=== PATIENT | female | born 1980 | race Caucasian/White ===

== ENCOUNTER → 2016-05-21 | Outpatient (REF) | payer BC | LOC: M LAB REF 12:24 | PROVIDERS: ATTEND Physician Assistant | DX: R30.0 Dysuria (principal) ==

== ENCOUNTER → 2023-06-08 | Outpatient (REF) | payer BC ==
[~2023-06-08] MED LIST: MYCO500T PO
[2023-06-08 14:51] LABS: BASO % 0.5 % (0.0-1.0); EOS # 0.2 10^3/uL (0.0-0.5); EOS % 2.4 % (0.0-3.0); HEMATOCRIT 45.6 % (36.0-47.0); HEMOGLOBIN 15.1 g/dl (12.0-15.5); LYMPH # 1.3 10^3/uL (1.5-5.0); LYMPH % 21.5 % (24.0-44.0); MEAN CORPUSCULAR HEMOGLOBIN 31.2 pg (27.0-33.0); MEAN CORPUSCULAR HGB CONC 33.1 g/dl (32.0-36.5); MEAN CORPUSCULAR VOLUME 94.2 fl (80.0-96.0); MONO # 0.5 10^3/uL (0.0-0.8); MONO % 8.5 % (2.0-8.0); NEUTROPHILS # 4.1 10^3/uL (1.5-8.5); NEUTROPHILS % 66.9 % (36.0-66.0); PLATELET COUNT, AUTOMATED 228 10^3/uL (150-450); RED BLOOD COUNT 4.84 10^6/uL (4.00-5.40); WHITE BLOOD COUNT 6.1 10^3/uL (4.0-10.0)
[2023-06-08 15:21] LABS: BLOOD UREA NITROGEN 15 MG/DL (9-23); CARBON DIOXIDE LEVEL 26 MMOL/L (20-31); CHLORIDE LEVEL 105 MMOL/L (98-107); CHOLESTEROL LEVEL 208 MG/DL (<200); CREATININE FOR GFR 0.71 MG/DL (0.55-1.30); GLOMERULAR FILTRATION RATE > 60.0 (>58); GLUCOSE, FASTING 81 MG/DL (60-100); LDL CHOLESTEROL 121.6 MG/DL (<100); POTASSIUM SERUM 4.3 MMOL/L (3.5-5.1); SODIUM LEVEL 138 MMOL/L (136-145); TRIGLYCERIDES LEVEL 232 MG/DL (<150)
[2023-06-08 15:23] LABS: TOTAL 25(OH) VITAMIN D 11.9 NG/ML (20.0-100.0)
== END ==
LOC: M SFHCADAM 08:38
PROVIDERS: ATTEND Physician Assistant
DX: R05.3 Chronic cough (principal); R53.83 Other fatigue; Z13.220 Encounter for screening for lipoid disorders; Z13.1 Encounter for screening for diabetes mellitus; E55.9 Vitamin D deficiency, unspecified; M33.90 Dermatopolymyositis, unspecified, organ involvement unspecified; Z23 Encounter for immunization

== ENCOUNTER → 2023-06-14 | Outpatient (CLI) | payer BC | LOC: M WHC 10:44 | PROVIDERS: ATTEND Physician Assistant | DX: Z12.31 Encounter for screening mammogram for malignant neoplasm of breast (principal); Z53.9 Procedure and treatment not carried out, unspecified reason ==

== ENCOUNTER → 2023-06-21 | Outpatient (REF) | payer BC | LOC: M SFHCWAGY 13:14 | PROVIDERS: ATTEND Physician Assistant | DX: Z12.4 Encounter for screening for malignant neoplasm of cervix (principal) ==

== ENCOUNTER 2023-08-01 07:45 | Outpatient (RCR) | payer BC | END 2023-08-04 | LOC: M PT 07:45 | PROVIDERS: ATTEND Physician Assistant | DX: N94.10 Unspecified dyspareunia (principal) ==

== ENCOUNTER 2023-08-15 09:23 | Outpatient (RCR) | payer BC | END 2023-09-03 | LOC: M PT 09:23 | PROVIDERS: ATTEND Physician Assistant | DX: N94.10 Unspecified dyspareunia (principal) ==

== ENCOUNTER 2024-02-05 11:55 | Day surgery (SDC) | payer BC ==
[~2024-02-05] VITALS: Ht 160 cm; Wt 81.3 kg
[~2024-02-05 11:55] MED LIST changes: +FOLI1TAB11 PO; +METH2.5T48 PO
[2024-02-05] MEDS ORDERED: LIDOCAINE 2% 100MG/5ML SDV (FOR ANES.) As Ordered ONE (13:03)
[2024-02-05] MEDS ORDERED: propofoL 200 MG/20 ML VIAL As Ordered ONE (13:04)
[2024-02-05] MEDS ORDERED: GLUCAGON INJ 1MG VIAL As Ordered ONE (13:19)
[2024-02-05 13:31] VITALS: TEMP 97.8
[2024-02-05 14:00] VITALS: BP 133/81; O2SAT 98
== END 2024-02-05 14:00 | disposition home or self-care (01) ==
LOC: M OPP 11:55
PROVIDERS: ATTEND Internal Medicine Gastroenterology
DX: Z12.11 Encounter for screening for malignant neoplasm of colon (principal); Z12.12 Encounter for screening for malignant neoplasm of rectum; K64.8 Other hemorrhoids; M33.10 Other dermatomyositis, organ involvement unspecified; Z79.631 Long term (current) use of antimetabolite agent; Z79.899 Other long term (current) drug therapy
CPT/HCPCS: 45378; J1610

== ENCOUNTER → 2024-04-22 | Outpatient (CLI) | payer BC ==
[2024-04-22 16:48] LABS: BASO % 0.4 % (0.0-1.0); EOS # 0.1 10^3/uL (0.0-0.5); EOS % 1.7 % (0.0-3.0); HEMATOCRIT 43.1 % (36.0-47.0); HEMOGLOBIN 13.8 g/dl (12.0-15.5); LYMPH # 1.4 10^3/uL (1.5-5.0); LYMPH % 19.6 % (24.0-44.0); MEAN CORPUSCULAR HEMOGLOBIN 30.5 pg (27.0-33.0); MEAN CORPUSCULAR VOLUME 95.1 fl (80.0-96.0); MONO # 0.6 10^3/uL (0.0-0.8); MONO % 8.4 % (2.0-8.0); NEUTROPHILS # 4.9 10^3/uL (1.5-8.5); NEUTROPHILS % 69.6 % (36.0-66.0); PLATELET COUNT, AUTOMATED 216 10^3/uL (150-450); RED BLOOD COUNT 4.53 10^6/uL (4.00-5.40)
[2024-04-22 16:57] LABS: ERYTHROCYTE SEDIMENTATION RATE 25 mm/hr (0-20)
[2024-04-22 17:11] LABS: CPK CREATINE PHOSPHOKINASE 291 U/L (34-145)
[2024-04-22 17:12] LABS: ALT/SGPT 23 U/L (7.0-40); AST/SGOT 25 U/L (<34); BLOOD UREA NITROGEN 14 MG/DL (9-23); C REACTIVE PROTEIN QUANTITATIV < 0.50 MG/DL (<1.0); CREATININE FOR GFR 0.58 MG/DL (0.55-1.30); GLOMERULAR FILTRATION RATE > 60.0 (>58)
== END ==
LOC: M WUC 10:36
PROVIDERS: ATTEND Nurse Practitioner
DX: M33.90 Dermatopolymyositis, unspecified, organ involvement unspecified (principal); Z79.899 Other long term (current) drug therapy

== ENCOUNTER → 2024-06-19 | Outpatient (REF) | payer BC ==
[2024-06-19 13:19] LABS: TOTAL 25(OH) VITAMIN D 20.2 NG/ML (20.0-100.0)
[2024-06-19 13:20] LABS: ALBUMIN 3.7 G/DL (3.2-5.2); ALKALINE PHOSPHATASE 69 U/L (35-104); ALT/SGPT 25 U/L (7.0-40); AST/SGOT 25 U/L (<34); BILIRUBIN,TOTAL 0.5 MG/DL (0.3-1.2); BLOOD UREA NITROGEN 16 MG/DL (9-23); CALCIUM LEVEL 9.2 MG/DL (8.5-10.1); CARBON DIOXIDE LEVEL 29 MMOL/L (20-31); CHLORIDE LEVEL 104 MMOL/L (98-107); CHOLESTEROL LEVEL 231 MG/DL (<200); CHOLESTEROL RISK RATIO 5.53 (<5); CREATININE FOR GFR 0.73 MG/DL (0.55-1.30); GLOMERULAR FILTRATION RATE > 90.0 (>58); GLUCOSE, FASTING 85 MG/DL (60-100); HDL CHOLESTEROL 41.7 MG/DL (>40); LDL CHOLESTEROL 148.3 MG/DL (<100); NON-HDL-C 189.3 MG/DL; POTASSIUM SERUM 4.6 MMOL/L (3.5-5.1); SODIUM LEVEL 142 MMOL/L (136-145); TOTAL PROTEIN 7.3 G/DL (5.7-8.2); TRIGLYCERIDES LEVEL 205 MG/DL (<150)
== END ==
LOC: M SFHCADAM 09:52
PROVIDERS: ATTEND Physician Assistant
DX: E55.9 Vitamin D deficiency, unspecified (principal); E78.00 Pure hypercholesterolemia, unspecified

== ENCOUNTER → 2024-07-11 | Outpatient (CLI) | payer BC | LOC: M WHC 07:11 | PROVIDERS: ATTEND Physician Assistant | DX: Z12.31 Encounter for screening mammogram for malignant neoplasm of breast (principal) ==

== ENCOUNTER → 2024-07-25 | Outpatient (CLI) | payer BC | LOC: M WHC 07:47 | PROVIDERS: ATTEND Physician Assistant | DX: R92.2 Inconclusive mammogram (principal); R92.321 Mammographic fibroglandular density, right breast | CPT/HCPCS: 76642; 77065; G0279 ==

== ENCOUNTER → 2024-11-08 | Outpatient (REF) | payer BC ==
[2024-11-08 17:09] LABS: INR 0.97
[2024-11-08 17:41] LABS: BASO # 0.0 10^3/uL (0.0-0.2); BASO % 0.3 % (0.0-1.0); EOS # 0.1 10^3/uL (0.0-0.5); EOS % 1.2 % (0.0-3.0); LYMPH # 1.8 10^3/uL (1.5-5.0); LYMPH % 17.7 % (24.0-44.0); MONO # 0.7 10^3/uL (0.0-0.8); MONO % 6.8 % (2.0-8.0); NEUTROPHILS # 7.6 10^3/uL (1.5-8.5); NEUTROPHILS % 73.7 % (36.0-66.0); PLATELET COUNT, AUTOMATED 253 10^3/uL (150-450)
[2024-11-08 18:06] LABS: ALT/SGPT 34 U/L (7.0-40); AST/SGOT 39 U/L (<34); CALCIUM LEVEL 9.4 MG/DL (8.5-10.1); CARBON DIOXIDE LEVEL 28 MMOL/L (20-31); CHLORIDE LEVEL 102 MMOL/L (98-107); CREATININE FOR GFR 0.73 MG/DL (0.55-1.30); GLOMERULAR FILTRATION RATE > 90.0 (>58); IRON (FE) 51 UG/DL (50-170); PERCENT SATURATION 15.3 % (13.2-45.0); POTASSIUM SERUM 3.7 MMOL/L (3.5-5.1); SODIUM LEVEL 142 MMOL/L (136-145)
[2024-11-08 18:07] LABS: LUTEINIZING HORMONE 7.2 mIU/ML; PROLACTIN 13.76 NG/ML
[2024-11-08 18:08] LABS: FREE T4 1.22 NG/DL (0.89-1.76)
== END ==
LOC: M SFHCADAM 15:14
PROVIDERS: ATTEND Physician Assistant
DX: N92.6 Irregular menstruation, unspecified (principal)
CPT/HCPCS: 80053; 82728; 83001; 83002; 83550; 84146; 84439; 84443; 85025; 85610; 85730; G0123

== ENCOUNTER → 2024-11-13 | Outpatient (REF) | payer BC | LOC: M SFHCDERM 13:31 | PROVIDERS: ATTEND Nurse Practitioner Family | DX: B07.9 Viral wart, unspecified (principal); L57.8 Other skin changes due to chronic exposure to nonionizing radiation; L85.8 Other specified epidermal thickening ==

== ENCOUNTER → 2024-11-14 | Outpatient (CLI) | payer BC | LOC: M RAD 10:32 | PROVIDERS: ATTEND Physician Assistant | DX: N92.6 Irregular menstruation, unspecified (principal) ==

== ENCOUNTER → 2025-01-06 | Outpatient (CLI) | payer BC | LOC: M WHC 14:12 | PROVIDERS: ATTEND Physician Assistant | DX: Z53.9 Procedure and treatment not carried out, unspecified reason (principal) ==

== ENCOUNTER → 2025-01-08 | Outpatient (CLI) | payer BC | LOC: M WUC 11:26 | PROVIDERS: ATTEND Nurse Practitioner | DX: M33.90 Dermatopolymyositis, unspecified, organ involvement unspecified (principal) ==

== ENCOUNTER 2025-01-27 07:20 | Day surgery (SDC) | payer BC ==
[~2025-01-27] VITALS: Ht 160 cm; Wt 82.7 kg
[2025-01-27] MEDS ORDERED: KETOROLAC 30 MG/ML 1 ML VIAL IV ONE (08:00)
[2025-01-27 08:02] LABS: BASO # 0.0 10^3/uL (0.0-0.2); BASO % 0.2 % (0.0-1.0); EOS # 0.0 10^3/uL (0.0-0.5); EOS % 0.2 % (0.0-3.0); LYMPH # 1.3 10^3/uL (1.5-5.0); LYMPH % 10.0 % (24.0-44.0); MONO # 1.1 10^3/uL (0.0-0.8); MONO % 8.5 % (2.0-8.0); NEUTROPHILS # 10.1 10^3/uL (1.5-8.5); NEUTROPHILS % 80.9 % (36.0-66.0); PLATELET COUNT, AUTOMATED 206 10^3/uL (150-450)
[2025-01-27] MEDS: NS (Normal Saline) 0.9% 1,000 ML IV ONE (08:09)
[2025-01-27] MEDS: ACETAMINOPHEN *IV* 1,000 MG in IV 1 EA IV ONE (08:10)
[2025-01-27 08:26] LABS: KETONE, URINE AUTO RFX NEGATIVE (NEGATIVE); LEUKOCYTE ESTERASE UR AUTO RFX NEGATIVE (NEGATIVE); MUCUS, URINE RFX SMALL (NEGATIVE); NITRITE, URINE AUTO RFX NEGATIVE (NEGATIVE); RBC, URINE AUTO RFX 0 /HPF (0-3); SQUAM EPITHELIAL CELL UR AURFX 4 /HPF (0-6); WBC, URINE AUTO RFX 0 /HPF (0-3)
[2025-01-27 08:30] LABS: ALT/SGPT 30 U/L (7.0-40); AST/SGOT 26 U/L (<34); CALCIUM LEVEL 8.5 MG/DL (8.5-10.1); CARBON DIOXIDE LEVEL 24 MMOL/L (20-31); CHLORIDE LEVEL 106 MMOL/L (98-107); CREATININE FOR GFR 0.66 MG/DL (0.55-1.30); GLOMERULAR FILTRATION RATE > 90.0 (>58); POTASSIUM SERUM 3.9 MMOL/L (3.5-5.1); SODIUM LEVEL 140 MMOL/L (136-145)
[2025-01-27 08:31] LABS: HCG, SERUM QUALITATIVE NEGATIVE (NEGATIVE)
[2025-01-27] MEDS ORDERED: ISOVUE-370 76% 100 ML VIAL As Ordered ONE (08:33)
[2025-01-27] MEDS: PIPERACILLIN/TAZOBACTAM SOD 3.375 GM in DEXTROSE 5% (D5W) ADV/MINI-BAG 50 ML IV ONE (10:20)
[2025-01-27] MEDS ORDERED: MYCO500T PO ×2 (10:53)
[2025-01-27] MEDS ORDERED: TACR0.1O TOP (10:53)
[2025-01-27] MEDS ORDERED: HOME MED LIST COMPLETE! XX SCH (10:55)
[2025-01-27] MEDS ORDERED: HYDR-3713 PO (14:28)
[2025-01-27] MEDS ORDERED: AUGM500T34 PO (14:28)
[2025-01-27] MEDS ORDERED: ONDANSETRON 4MG/2ML VIAL As Ordered ONE (14:38)
[2025-01-27] MEDS ORDERED: KETOROLAC 30 MG/ML 1 ML VIAL As Ordered ONE (14:38)
[2025-01-27] MEDS ORDERED: LIDOCAINE 2% 100 MG/5 ML SDV (FOR ANES.) As Ordered ONE (14:38)
[2025-01-27] MEDS ORDERED: ROCURONIUM BROMIDE 50MG/5ML VIAL As Ordered ONE (14:38)
[2025-01-27] MEDS ORDERED: MIDAZOLAM INJ 2 MG/2 ML VIAL As Ordered ONE (14:40)
[2025-01-27] MEDS ORDERED: ACETAMINOPHEN 1000MG/100ML IV BAG As Ordered ONE (14:44)
[2025-01-27] MEDS ORDERED: SUGAMMADEX SODIUM 500 MG/5 ML VIAL As Ordered ONE (14:44)
[2025-01-27] MEDS ORDERED: dexAMETHasone 4 MG/ML 1 ML VIAL As Ordered ONE (14:51)
[2025-01-27] MEDS: ZOSYN 3.375GM VIAL As Ordered ONE (15:33)
[2025-01-27] MEDS ORDERED: LR 1,000 ML IV SCH (16:05)
[2025-01-27] MEDS ORDERED: ONDANSETRON 4MG/2ML VIAL IV PRN (16:05)
[2025-01-27] MEDS: HYDROMORPHONE HCL 0.5 MG/0.5 ML SYRINGE IV PRN (16:39)
[2025-01-27 17:50] VITALS: BP 107/61; TEMP 98.5; O2SAT 96
[2025-01-28] MEDS ORDERED: FLUZONE VACCINE TRI PF(25-26) 0.5ML SYRINGE IM.IMMUN ONE (09:00)
== END 2025-01-27 17:57 | disposition home or self-care (01) ==
LOC: M ED 07:20 → M SDC 10:25
PROVIDERS: ATTEND Surgery
DX: K35.80 Unspecified acute appendicitis (principal); M33.10 Other dermatomyositis, organ involvement unspecified; Z79.899 Other long term (current) drug therapy
CPT/HCPCS: 44970; 74177; 80048; 80076; 81001; 83690; 84703; 85025; 88304; 96365; 96367; 99285; J0131; J0134; J0665; J1100; J1171; J1885; J2250; J2405; J2543; J3010; Q9967; S2900

== ENCOUNTER 2025-02-01 21:24 | Emergency (ER) | payer BC ==
[~2025-02-01] VITALS: Ht 160 cm; Wt 83.0 kg
[~2025-02-01 21:24] MED LIST changes: +AUGM500T34 PO; +HYDR-3713 PO; +TACR0.1O TOP
[2025-02-01 21:59] LABS: APPEARANCE, URINE CLEAR (CLEAR); BACTERIA, URINE AUTO NEGATIVE (NEGATIVE); BILIRUBIN, URINE AUTO NEGATIVE (NEGATIVE); BLOOD, URINE BLOOD NEGATIVE (NEGATIVE); GLUCOSE, URINE (UA) AUTO NEGATIVE (NEGATIVE); KETONE, URINE AUTO NEGATIVE (NEGATIVE); LEUKOCYTE ESTERASE, URINE AUTO NEGATIVE (NEGATIVE); NITRITE, URINE AUTO NEGATIVE (NEGATIVE); PROTEIN, URINE AUTO NEGATIVE (NEGATIVE); RBC, URINE AUTO 0 /HPF (0-3); SPECIFIC GRAVITY URINE AUTO 1.002 (1.002-1.035); SQUAMOUS EPITHELIAL CELL UR AU 1 /HPF (0-6); UROBILINOGEN, URINE AUTO 0.2 mg/dL (0.0-2.0); WBC, URINE AUTO 0 /HPF (0-3)
[2025-02-01 22:29] LABS: PLATELET COUNT, AUTOMATED 342 10^3/uL (150-450)
[2025-02-01 22:53] LABS: ATYPICAL LYMPH 1 % (0-5); EOSINOPHILS 1 % (0-3); LYMPHOCYTES 30 % (16-44); MONOCYTES 6 % (0-5); NEUTROPHILS 61 % (28-66); PLATELET ESTIMATE NORMAL (NORMAL)
[2025-02-01 23:34] LABS: HCG, SERUM QUALITATIVE NEGATIVE (NEGATIVE)
[2025-02-01 23:42] LABS: ALT/SGPT 29 U/L (7.0-40); AST/SGOT 53 U/L (<34); CALCIUM LEVEL 8.4 MG/DL (8.5-10.1); CARBON DIOXIDE LEVEL 27 MMOL/L (20-31); CHLORIDE LEVEL 104 MMOL/L (98-107); CREATININE FOR GFR 0.62 MG/DL (0.55-1.30); GLOMERULAR FILTRATION RATE > 90.0 (>58); POTASSIUM SERUM 4.9 MMOL/L (3.5-5.1); SODIUM LEVEL 140 MMOL/L (136-145)
[2025-02-01 23:53] VITALS: TEMP 98.3
[2025-02-02 03:15] VITALS: BP 111/69; O2SAT 98
== END 2025-02-02 03:23 | disposition home or self-care (01) ==
LOC: M ED 21:24
DX: S30.13XA Contusion of flank (latus) region, initial encounter (principal); Z90.89 Acquired absence of other organs; Y92.89 Other specified places as the place of occurrence of the external cause; Y93.89 Activity, other specified; Y99.8 Other external cause status; Z79.1 Long term (current) use of non-steroidal anti-inflammatories (NSAID); Z79.2 Long term (current) use of antibiotics; Z79.899 Other long term (current) drug therapy